=== PATIENT | male | born 1985 | race Caucasian/White ===

== ENCOUNTER 2021-01-10 18:21 | Emergency (ER) | payer OTHER ==
[~2021-01-10] VITALS: Ht 177.8 cm; Wt 65.0 kg
[2021-01-10 18:37] VITALS: BP 124/54
== END 2021-01-10 18:38 | disposition home or self-care (01) ==
LOC: ED 18:30
DX: S01.81XA Laceration without foreign body of other part of head, initial encounter (principal); W21.05XA Struck by basketball, initial encounter; Y93.67 Activity, basketball; Y92.69 Other specified industrial and construction area as the place of occurrence of the external cause; Y99.8 Other external cause status
CPT/HCPCS: 12011; 99282